=== PATIENT | female | born 1950 | race Caucasian/White ===

== ENCOUNTER 2018-04-02 17:24 | Emergency (ER) | payer BC, MEDICARE ==
[2018-04-02] MEDS ORDERED: SODIUM CHLORIDE 0.9% FLUSH 10 ML SOL IV PRN (17:28)
[2018-04-02 17:31] VITALS: TEMP 98.5
[2018-04-02] MEDS ORDERED: NITROGLYCERIN 0.4 MG TAB SL PRN ×2 (17:40→17:43)
[2018-04-02] MEDS: ASPIRIN 81 MG CHEWABLE CTB PO ONE (17:40)
[2018-04-02] MEDS ORDERED: ASPIRIN 81 MG CHEWABLE CTB ONE (17:40)
[2018-04-02] MEDS ORDERED: NITROGLYCERIN 0.4 MG TAB SL ONE (17:40)
[2018-04-02 17:43] LABS: BASOPHILS % (AUTO) 1 % (0-3); EOSINOPHILS % (AUTO) 3 % (0-9); HEMATOCRIT 35 % (35-47); HEMOGLOBIN 10.5 gm/dl (12.0-15.5); LYMPHOCYTES % (AUTO) 30.3 % (10-50); MEAN CORPUSCULAR HEMOGLOBIN 20.9 pg (27.0-32.0); MEAN CORPUSCULAR HGB CONC 29.5 gm/dl (32.0-36.0); MONOCYTES % (AUTO) 8.4 % (0-12); NEUTROPHILS % (AUTO) 57.4 % (37-80)
[2018-04-02] MEDS ORDERED: METOPROLOL TARTRATE 5 MG/5 ML SOL IV ONE ×2 (17:44→18:09)
[2018-04-02] MEDS ORDERED: ASPIRIN EC 81 MG PO SCH (17:45)
[2018-04-02 17:46] LABS: MEAN CORPUSCULAR VOLUME 71 fL (81-99)
[2018-04-02 17:51] LABS: ALBUMIN 3.7 gm/dl (3.4-5.0); ALKALINE PHOSPHATASE 109 IU/L (46-116); ALT 20 IU/L (14-63); AST 11 IU/L (15-37); BILIRUBIN,TOTAL 0.4 mg/dl (0.2-1.0); BLOOD UREA NITROGEN 24 mg/dl (7-18); CALCIUM 8.4 mg/dl (8.5-10.1); CARBON DIOXIDE 27.6 mEq/L (21-32); CHLORIDE 105 mMol/L (98-107); CREATININE 0.75 mg/dl (0.60-1.00); GLUCOSE 89 mg/dl (74-106); POTASSIUM 3.7 mMol/L (3.5-5.1); SODIUM 141 mMol/L (136-145); TOTAL PROTEIN 7.6 gm/dl (6.4-8.2); TROP I < 0.017 ng/ml (0.000-0.056)
[2018-04-02 17:56] LABS: ANISOCYTOSIS MOD AMT; OVALOCYTES PRESENT; POIKILOCYTOSIS SLIGHT AMT
[2018-04-02 21:26] VITALS: RESP 18
[2018-04-02 21:28] VITALS: BP 133/73; PULSE 69; O2SAT 96
== END 2018-04-02 21:24 | disposition home or self-care (01) ==
LOC: ED 17:24
DX: R07.89 Other chest pain (principal)
CPT/HCPCS: 36415; 80053; 84484; 85025; 93005; 99284; 99285; A9270-GY; J3490

== ENCOUNTER 2018-10-05 10:51 | Emergency (ER) | payer BC ==
[2018-10-05 11:05] VITALS: RESP 18; TEMP 97.7
[2018-10-05 11:21] VITALS: BP 163/94; PULSE 85; O2SAT 98
[2018-10-05 11:28] LABS: BASOPHILS % (AUTO) 1 % (0-3); EOSINOPHILS % (AUTO) 2 % (0-9); HEMATOCRIT 34 % (35-47); HEMOGLOBIN 10.1 gm/dl (12.0-15.5); LYMPHOCYTES % (AUTO) 19.5 % (10-50); MEAN CORPUSCULAR HEMOGLOBIN 20.3 pg (27.0-32.0); MEAN CORPUSCULAR HGB CONC 29.6 gm/dl (32.0-36.0); MONOCYTES % (AUTO) 7.4 % (0-12); NEUTROPHILS % (AUTO) 70.4 % (37-80)
[2018-10-05 11:29] LABS: MEAN CORPUSCULAR VOLUME 68 fL (81-99)
[2018-10-05 11:40] LABS: POIKILOCYTOSIS SLIGHT AMT
[2018-10-05 11:41] LABS: ANISOCYTOSIS SLIGHT AMT; OVALOCYTES PRESENT
== END 2018-10-05 12:05 | disposition home or self-care (01) ==
LOC: ED 10:51
DX: K64.9 Unspecified hemorrhoids (principal); K62.5 Hemorrhage of anus and rectum
CPT/HCPCS: 36415; 85025; 99282; 99283